=== PATIENT | female | born 1940 | race Caucasian/White ===

== ENCOUNTER → 2018-12-28 | Outpatient (CLI) | payer MEDICARE, OTHER ==
--- NOTE | 2018-12-28 08:49 | Diagnostic Imaging Report ---
EXAM: US ABDOMEN COMPLETE DATE: 12/28/2018 7:45 AM Time stamp on exam: INDICATION: Abdominal pain, hypertension COMPARISON: None TECHNIQUE: Transverse and longitudinal barr scale and color doppler sonographic images of the upper abdomen were obtained. FINDINGS: LIVER 14.5 cm in the right midclavicular line. Normal echogenicity, normal contour, no masses. SPLEEN 8.9 cm in maximum diameter. Normal echogenicity, no masses. GALLBLADDER No stones, sludge, wall-thickening or pericholecystic fluid. Negative sonographic Santa's sign. BILE DUCTS No intra nor extra-hepatic biliary dilation. Common bile duct measures 0.3 cm PANCREAS: Visualized portions are normal. RIGHT KIDNEY: 9.8 cm Echogenicity: Normal Collecting System: No hydronephrosis Stones: None Cyst/Mass: None LEFT KIDNEY: 8.5 cm Echogenicity: Normal Collecting System: No hydronephrosis Stones: None Cyst/Mass: None VESSELS: Aorta: Nonaneurysmal Inferior Vena Cava: Patent Main Portal Vein: 1.1 cm, normal size with hepatopetal flow. FREE FLUID: None IMPRESSION: Unremarkable abdominal ultrasound. Signed by: Dr. Dashawn Phillips M.D. on 12/28/2018 8:46 AM
== END ==
LOC: US 07:34
PROVIDERS: ATTEND Internal Medicine Gastroenterology
DX: R10.13 Epigastric pain (principal); E11.9 Type 2 diabetes mellitus without complications; I10 Essential (primary) hypertension; E66.3 Overweight; Z71.3 Dietary counseling and surveillance
CPT/HCPCS: 76700